=== PATIENT | female | born 1980 | race Caucasian/White ===

== ENCOUNTER → 2016-11-19 14:32 | Outpatient (CLI) | payer OTHER ==
[2010-06-22 16:47] VITALS: BMI 20.8
== END | disposition home or self-care (01) ==
LOC: D.MAMMO 08:30
DX: C50.412 Malignant neoplasm of upper-outer quadrant of left female breast (principal)

== ENCOUNTER 2018-06-12 19:00 | Outpatient (CLI) | payer OTHER ==
[2010-06-22 16:47] VITALS: BMI 20.8
== END 2018-06-12 23:59 | disposition home or self-care (01) ==
LOC: D.MAMMO 19:00
PROVIDERS: ATTEND Family Medicine
DX: R92.8 Other abnormal and inconclusive findings on diagnostic imaging of breast (principal)

== ENCOUNTER 2019-04-27 07:00 | Day surgery (SDC) | payer OTHER ==
[2019-04-25 15:03] LABS: BASOPHILS 0.9 % (0-2); EOSINOPHILS 2.5 % (0-7); HEMOGLOBIN 13.3 g/dL (12-16); IMMATURE GRANULOCYTES 0.2 % (0-5); LYMPHOCYTES 36.6 % (15-50); MCH 29.2 pg (26.0-34.0); MCHC 33.3 g/dL (31.0-37.0); MCV 87.7 fL (80.0-100.0); MEAN PLATELET VOLUME 9.4 fL (7.4-10.4); MONOCYTES 9.5 % (2-11); NEUTROPHILS 50.3 % (40-80); PLATELET COUNT 333 10x3/uL (130-400); RBC 4.56 10x6/uL (4.00-5.40); WBC 5.7 10x3/uL (4.8-10.8)
[2019-04-25 15:26] LABS: APTT 22.8 SECONDS (22.8-39.4); INR 0.92 (0.85-1.17); PROTIME 12.3 SECONDS (11.6-15.0)
[2019-04-25 15:29] LABS: CALC OSMOLALITY 278 mosm/kg (275-300); CALCIUM 8.2 mg/dL (8.5-10.1); CARBON DIOXIDE 26.4 mmol/L (21.0-32.0); CHLORIDE - SERUM 103 mmol/L (98-107); CREATININE - SERUM 0.6 mg/dL (0.6-1.3); GLUCOSE 90 mg/dL (74-106); POTASSIUM - SERUM 3.6 mmol/L (3.5-5.1); SODIUM 140 mmol/L (136-145); UREA NITROGEN 13 mg/dL (7-18); eGFR NON AFRICAN AMERICAN > 90 mL/min (90-120)
[~2019-04-27] VITALS: Ht 160 cm; Wt 67.1 kg
--- NOTE | ~2019-04-27 | OP ---
PATIENT NAME: DANIELLE MCWILLIAMS MEDICAL RECORD: [id number] :82 LOCATION:[facility] ADMISSION DATE: SURGEON: DEEWY TALLEY MD DATE OF OPERATION: 04/27/2019 PREOPERATIVE DIAGNOSIS: History of intraductal breast cancer. POSTOPERATIVE DIAGNOSIS: History of intraductal breast cancer. PROCEDURE: Laparoscopic bilateral salpingo-oophorectomy. SURGEON: Dewey Talley MD ANESTHESIA: General. INTRAVENOUS FLUIDS: Per anesthesia record. FINDINGS: Grossly normal appearing uterus, fallopian tubes and bilateral ovaries, corpus luteum cyst noted on the left ovary. SPECIMENS: Bilateral fallopian tubes and bilateral ovaries. COMPLICATIONS: None apparent. ESTIMATED BLOOD LOSS: Minimal. DESCRIPTION OF THE PROCEDURE: The patient was taken to the operating room where general anesthesia was achieved without difficulty. The patient was then prepped and draped in normal sterile fashion in the dorsal lithotomy position in the [facility]. At this point, a Amezquita catheter was placed after a vaginal prep and an acorn uterine manipulator/cervical cannula was placed into the cervix following the placement of a single-tooth tenaculum on the anterior lip. The tenaculum and manipulator were then attached to each other for uterine manipulation during the case. At this point, the patient was prepped and draped and a 5-mm incision was made in the infraumbilical portion of the umbilicus. A 5-mm bladeless trocar was then used to enter the intraperitoneal space under direct visualization of the laparoscope. The introducer was removed and the scope was placed into the intraperitoneal space where insufflation was performed. Opening pressure was found to be less than 8 mmHg. Following the insufflation, a second port site was made in the left lower quadrant and 5-mm skin incision was made bilaterally and 5-mm bladeless trocars were used to enter the intraperitoneal space under direct visualization of the laparoscope. Survey of the abdomen and pelvis was performed. Uterus was found to be significantly retroverted. The uterine manipulator was used to establish view of the bilateral fallopian tubes and ovaries. Attention was first turned to the right adnexa where the infundibulopelvic ligament was identified by tenting the right ovary upward. The infundibulopelvic ligament was then cauterized using the KabamerWatchfinderat electrocautery system and then cut using the harmonic function on the instrument. This was performed segmentally across the ovarian vessels to the level of the broad ligament. The broad ligament was then cauterized using the Thunderbeat to approximately the level of the round ligament. At this point, the Thunderbeat was placed across the proximal fallopian tube and utero-ovarian ligament. This was cauterized twice using bipolar cautery and then cut in OPERATIVE REPORT [id number] DANIELLE MCWILLIAMS between the 2 segments using the Harmonic scalpel. Good hemostasis was noted on the right side, the tube and ovary were then placed in the anterior cul-de-sac. Attention was then turned to the left adnexa where in a similar fashion, the Thunderbeat surgical device was used to cauterize using bipolar cautery across the infundibulopelvic ligament and segmentally the ovarian vessels were cauterized and then cut using the Harmonic scalpel. This was continued again through the broad ligament to approximately the level of the round ligament; at which point, the proximal fallopian tube and utero-ovarian ligament were cauterized times 2 using the bipolar cautery and then cut using the Harmonic scalpel. This was then placed into the anterior cul-de-sac as well. Attention was then turned to the left lower quadrant port, which the skin incision was extended approximately 4-5 mm. At this point, the 5-mm trocar was then removed and over an introducer, a 10-mm trocar was then placed into the trocar site. An Endobag times 2 was used to retrieve both fallopian tubes and ovaries without difficulty. A survey of the abdomen and pelvis was performed. The pressure was lowered and no bleeding was noted from any of the surgical sites, spud dust was placed across the now missing adnexal regions and again good hemostasis was noted. The patient was then thoroughly desufflated and the umbilical and right lower quadrant trocar sites were repaired with 3-0 Vicryl in an interrupted fashion times 2. The left lower quadrant site had a ijhzxn-sq-gudir placement to the fascia using 0-Vicryl and then the skin was repaired with 3-0 Vicryl sutures. The uterine manipulator was then removed as well as catheter. The patient tolerated the procedure well, transferred to postanesthesia recovery stable without incident. TRANSINT:[id number] Voice Confirmation ID: [id number] DOCUMENT ID: [id number] DEWEY TALLEY MD CC: [id number] DICTATION DATE: 05/10/19 154 [employer]IO [employer]LECT[employer] TECHNICIAN: 05/10/191911 [facility] 04/27/19 [place] [id number] [place] [id number]
[~2019-04-27 07:00] MED LIST: CELEXA40 MG PO; TEMAZEPAM30 MG PO
[2019-04-27 07:07] VITALS: Ht 160 cm; Wt 67.1 kg
[2019-04-27 07:24] LABS: HCG URINE NEGATIVE (NEGATIVE)
--- NOTE | 2019-04-27 13:18 | NUR ---
1315 IV REMOVED AND PRESSURE HELD. NO NAUSEA. NO VAGINAL BLEEDING
== END 2019-04-27 13:37 | disposition home or self-care (01) ==
LOC: D.OPS 07:00 → D.PAN 07:30 → D.OPS 07:30 → D.PAN 09:00 → D.OPS 13:37
PROVIDERS: Anesthesiology; ATTEND Obstetrics & Gynecology
DX: Z85.3 Personal history of malignant neoplasm of breast (principal); C50.019 Malignant neoplasm of nipple and areola, unspecified female breast

== ENCOUNTER 2020-06-10 09:00 | Outpatient (CLI) | payer OTHER ==
[2019-04-27 07:07] VITALS: BMI 26.2
== END 2020-06-10 23:59 | disposition home or self-care (01) ==
LOC: D.MAMMO 09:00
PROVIDERS: ATTEND Internal Medicine Hematology & Oncology
DX: C50.412 Malignant neoplasm of upper-outer quadrant of left female breast (principal); C77.3 Secondary and unspecified malignant neoplasm of axilla and upper limb lymph nodes; D64.9 Anemia, unspecified; D50.9 Iron deficiency anemia, unspecified; R97.8 Other abnormal tumor markers